=== PATIENT | male | born 1955 | race Caucasian/White ===

== ENCOUNTER 2018-10-25 09:27 | Observation (INO) ==
--- NOTE | 2018-10-11 14:29 | Anesthesiology Consultation ---
Date of Service October 11, 2018 Assessment & Plan (1) Encounter for pre-operative examination: - No previous anesthesia records available Chart Review Chart Review: Acceptable Risk for Surgery and Patient NOT seen in Pre Admission Testing Consults Requested cardiac ([facility] (08/28)) Patient was seen by cardiology on 08/28 for evaluation of abnormal stress test and upcoming surgery. Per note from that visit, "The limited uptake in the inferoapical betts is likely due to attenuation by the GI tract. Otherwise, the wall motion and EF are not consistent with scarring from prior AK. I would like to schedule and echocardiogram to get a better look at his EF and wall motion, though this should not delay any necessary surgery. He is an acceptable risk from a cardio vascular standpoint for any necessary surgery." History Surgery Operation Date: 10/25/18 07:15 Proposed Procedures p Bilateral Adenotonsillectomy, Uvulopalatopharyngoplasty - Janice Nugent MD Height/Weight Height: 6 ft 1 in Weight: 161 kg Allergies Allergy/AdvReac Type Severity Reaction Status Date / Time Penicillins Allergy Intermediate Hives Verified 09/30/18 15:47 Medications Home Medications Medication Instructions Recorded Confirmed Last Taken Cbd Oil 700 mg PO DAILY 07/10/18 09/30/18 Unknown atorvastatin 40 mg PO HS 07/10/18 09/30/18 Unknown canagliflozin-metformin [Invokamet 2 tab PO QAM 07/10/18 09/30/18 Unknown XR] hydrochlorothiazide 25 mg PO QAM 07/10/18 09/30/18 Unknown metformin 500 mg PO QAM 07/10/18 09/30/18 Unknown naproxen sodium [Aleve] 220 mg PO Q8H PRN 07/10/18 09/30/18 Unknown quinapril 80 mg PO QAM 07/10/18 09/30/18 Unknown Past Medical History Medical History Degenerative disc disease LUMBAR CHEMO NUCLEOSIS INJECTED TO DISOLVE L4-5 DISC IN PAST (NO ANESTHESIA) Diabetes mellitus, type 2 Hyperlipidemia Hypertension Morbid obesity ALAINA (obstructive sleep apnea) Osteoarthritis Past Family History Family History Mother Family history of diabetes mellitus Brother Family history of diabetes mellitus Past Surgical History Surgical History Cyst REMOVED FROM CHEST (MRSA SITE) History of arthroscopy LEFT KNEE History of colonoscopy Past Anesthesia History No Hx of Anesthesia Complications and No Family Hx of Anesthesia Complications LIKELY DIFFICULT AIRWAY BASED ON BODY HABITUS (per exam/consult from 07/10/18) Social History Smoking Status: Former smoker tobacco type: cigarettes Hx Alcohol Use: Yes Alcohol type: beer alcohol intake frequency: 3 or more drinks per day Hx Substance Use: No substance use type: does not use Testing Electrocardiogram Date: 08/28/18 Findings: + NSR @ (94) and + RBBB LAFB Echocardiogram Date: 10/08/18 EF: 55-60% Normal left and right ventricular systolic function Grade I diastolic dysfunction Moderate aortic stenosis (KINSEY 1.5 cm2) No pericardial effusion Stress Test Date: 07/31/18 Type: nuclear Myocardial perfusion imaging is done at rest and after pharmaceutical stress is abnormal. Although there is normal wall motion and EF found, there is evidence for poor uptake on both stress and resting images along the inferior wall, portions of the septum and apex of the left ventricle. These changes are not reversible.
--- NOTE | 2018-10-23 12:26 | History & Physical Report ---
Date of Service October 23, 2018 Assessment & Plan (1) Sleep apnea: adenotonsillectomy and uvulopalatoplasty History of Present Illness Chief Complaint: sleep apnea Primary Care Provider: Maverick Gaviria 63 yo with 3 episode of left tonsillar abcess, also significant moderate ALAINA Allergies Allergy/AdvReac Type Severity Reaction Status Date / Time Penicillins Allergy Intermediate Hives Verified 09/30/18 15:47 Home Medications Home Medications Medication Instructions Recorded Confirmed Type Cbd Oil 700 mg PO DAILY 07/10/18 09/30/18 History atorvastatin 40 mg PO HS 07/10/18 09/30/18 History canagliflozin-metformin [Invokamet 2 tab PO QAM 07/10/18 09/30/18 History XR] hydrochlorothiazide 25 mg PO QAM 07/10/18 09/30/18 History metformin 500 mg PO QAM 07/10/18 09/30/18 History naproxen sodium [Aleve] 220 mg PO Q8H PRN 07/10/18 09/30/18 History quinapril 80 mg PO QAM 07/10/18 09/30/18 History Past Med/Surg History Medical History Degenerative disc disease LUMBAR CHEMO NUCLEOSIS INJECTED TO DISOLVE L4-5 DISC IN PAST (NO ANESTHESIA) Diabetes mellitus, type 2 Hyperlipidemia Hypertension Morbid obesity ALAINA (obstructive sleep apnea) Osteoarthritis Surgical History Cyst REMOVED FROM CHEST (MRSA SITE) History of arthroscopy LEFT KNEE History of colonoscopy Family History Mother Family history of diabetes mellitus Brother Family history of diabetes mellitus Social History Preferred Language: [place] Communication Ability: Effective 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 Beliefs That Will Affect Care: None Current Living Situation: Spouse Other Information That Helps Us Care for You: No Feels Safe at Home: Yes Safety Concerns: Feels Safe At This Time Smoking Status: Never smoker Tobacco Type: cigarettes ; Do You Dip or Chew Tobacco: No ; Second Hand Exposure: No ; Tobacco Cessation Education Requested by Patient: No Hx Alcohol Use: Yes Alcohol type: beer Hx Substance Use: No Physical Exam Constitutional: WD/WN, vitals as above Eyes: PERRL, conjunctivae normal, anicteric sclerae ENMT: Mouth: + oropharynx abnormality (tonsils 3+ with collapse) Neck: trachea midline, no thyromegaly Respiratory: normal respiratory effort, lungs clear to auscultation Cardiovascular: RRR, no murmur, no edema
[~2018-10-25 09:27] MED LIST: CEFAZOLIN 3000MG 65 ML IV SCH; LR 15ML/HR IV SCH; [UNRECOGNIZED DRUG - REMARK] SCH
--- NOTE | 2018-10-25 10:35 | History & Physical Bridge Note ---
Date of Service October 25, 2018 History & Physical Bridge Note I have examined the patient, reviewed the History & Physical and in the interval since the performance of the History & Physical I have noted the following changes of clinical significance: no changes noted
[2018-10-25] MEDS ORDERED: ATROPINE SULFATE 0.1 MG/ML 10ML SYR IV PRN (10:49)
[2018-10-25] MEDS ORDERED: ePHEDrine sulfate 50 MG/ML AMP IV PRN (10:49)
[2018-10-25] MEDS ORDERED: ONDANSETRON INJ 2 MG/ML 2 ML VIAL IV PRN ×2 (10:49→14:00)
[2018-10-25] MEDS ORDERED: PROPOFOL IV EMULSION 10 MG/ML 20 ML VIAL IV ONE (10:53)
[2018-10-25] MEDS ORDERED: MIDAZOLAM HCL 1 MG/ML 2ML VIAL ONE (10:53)
[2018-10-25] MEDS ORDERED: ROCURONIUM BROMIDE 10 MG/ML 5 ML VIAL ONE (10:53)
[2018-10-25] MEDS ORDERED: fentaNYL citrate 100 MCG/2 ML VIAL ONE (10:53)
[2018-10-25] MEDS ORDERED: LIDOCAINE HCL 2% 2 ML VIAL/AMP(20MG/ML) INFIL ONE (10:53)
[2018-10-25] MEDS ORDERED: SUCCINYLCHOLINE CHLORIDE 20 MG/ML 10 ML VIAL ONE (10:53)
[2018-10-25] MEDS ORDERED: LIDOCAINE 2% JELLY 5 ML TUBE ONE (10:55)
[2018-10-25] MEDS ORDERED: ACETAMINOPHEN 1000 MG/100 ML IV IV ONE (10:55)
[2018-10-25] MEDS ORDERED: CEFAZOLIN 2,000 MG/15 ML IV PUSH IV ONE (10:55)
[2018-10-25] MEDS ORDERED: BUPIVACAINE/EPINEPHRINE 0.5% MPF 1:200,000 30 ML VIAL ONE (11:04)
[2018-10-25] MEDS ORDERED: MoRPHine SULFATE 4 MG/ML 1 ML CARP\\VIAL IV PRN (11:20)
[2018-10-25] MEDS ORDERED: LORazepam 1 MG/2 ML VIAL IV PRN (11:20)
[2018-10-25] MEDS ORDERED: ACETAMINOPHEN 325 MG TAB PO PRN (11:20)
[2018-10-25] MEDS ORDERED: OXYCODONE/ACETAMINOPHEN 5mg/325mg TAB PO PRN (11:20)
[2018-10-25] MEDS ORDERED: ACETAMINOPHEN SOL 650 MG/20.3 ML UDC PO PRN (11:20)
[2018-10-25] MEDS ORDERED: D5W AND 1/2NSS + 20MEQ KCL 20 MEQ/1,000 ML BAG IV SCH (11:30)
[2018-10-25] MEDS ORDERED: DEXAMETHASONE SOD INJ 4 MG/ML VIAL ONE (11:42)
[2018-10-25] MEDS ORDERED: ONDANSETRON INJ 2 MG/ML 2 ML VIAL ONE (11:42)
[2018-10-25] MEDS ORDERED: PHENYLEPHRINE 100MCG/ML 5ML SYR ONE (11:42)
--- NOTE | 2018-10-25 12:13 | Operative Report ---
Post Operative Report Pre & Post Diagnosis Operation Date: 10/25/18 11:15 Pre-Op Diagnosis: Sleep apnea Post-Op Diagnosis: Sleep apnea Procedure Operation Date: 10/25/18 11:15 Actual Procedures p Bilateral tonsillectomy, Uvulopalatopharyngoplasty - Janice Nugent MD Surgeon Janice Nugent MD Fleet Administrator none Estimated Blood Loss 25 Findings Consistent with Post-Op Diagnosis Specimens Tonsils and portion of uvula Anesthesia Type General Complications none Disposition Accompanied Patient To Recovery: Yes Disposition: Recovery Room Indications 63-year-old with sleep apnea unable to tolerate CPAP Description of Procedure He was brought to the operating room, properly identified, prepped and draped in the usual sterile manner after general endotracheal anesthesia. The mouthgag was placed in the soft palate was retracted using the red Suh catheter. Adenoidectomy was inspected and noted to have minimal adenoid tissue. Peritonsillar area were injected with 0.5% Sensorcaine with 1-200,000 strength epinephrine. Tonsillectomies were performed using the plasma knife and hemostasis was controlled using the plasma knife. The uvula was resected of its anterior portion using the #12 blade and the Metzenbaum scissors. Of the cut was cut into the palatoglossus fold and a flap was cut into the palatopharyngeus fold which was then rotated laterally into the palatoglossus incision. All the mucosal edges were approximated using 2-0 chromic sutures and the uvula was sewn upon itself. Pharynx was irrigated clean with saline. He tolerated the procedure well and was taken to the recovery area in satisfactory condition. I attest to the content of the Intraoperative Record and any orders documented therein. Any exceptions are noted below.
[2018-10-25] MEDS: fentaNYL citrate 100 MCG/2 ML VIAL IV PRN ×2 (12:45→12:50)
--- NOTE | 2018-10-25 14:45 | Anesthesiology Progress Note ---
Date of Service October 25, 2018 Anesthesia Post Procedure Vital Signs Vital Signs: Temp Pulse Pulse Pulse Pulse Resp BP 10/25/18 14:20 36.6 C 97 H 18 10/25/18 13:30 92 H 12 149/94 H 10/25/18 13:20 36.7 C 92 H 14 130/89 10/25/18 13:16 94 H 20 144/86 H 10/25/18 13:15 91 H 18 10/25/18 13:11 91 H 12 121/81 10/25/18 13:10 89 14 10/25/18 13:06 91 H 18 150/84 H 10/25/18 13:05 91 H 15 10/25/18 13:02 92 H 20 10/25/18 13:01 91 H 17 161/89 H 10/25/18 13:00 90 16 10/25/18 12:56 89 15 152/88 H 10/25/18 12:55 88 11 L 10/25/18 12:51 91 H 17 142/77 H 10/25/18 12:50 91 H 19 10/25/18 12:46 91 H 19 150/92 H 10/25/18 12:45 89 14 10/25/18 12:41 90 13 150/93 H 10/25/18 12:40 90 22 10/25/18 12:36 90 15 142/78 H 10/25/18 12:35 88 17 10/25/18 12:31 90 17 10/25/18 12:30 36.5 C 88 91 H 21 148/89 H 10/25/18 10:14 37.0 C 91 H 22 BP Pulse Ox 10/25/18 14:20 160/100 H 91 10/25/18 13:30 94 10/25/18 13:20 94 10/25/18 13:16 94 10/25/18 13:15 94 10/25/18 13:11 96 10/25/18 13:10 96 10/25/18 13:06 93 10/25/18 13:05 95 10/25/18 13:02 94 10/25/18 13:01 93 10/25/18 13:00 95 10/25/18 12:56 93 10/25/18 12:55 96 10/25/18 12:51 92 10/25/18 12:50 94 10/25/18 12:46 92 10/25/18 12:45 94 10/25/18 12:41 94 10/25/18 12:40 94 10/25/18 12:36 94 10/25/18 12:35 93 10/25/18 12:31 98 10/25/18 12:30 148/89 H 95 10/25/18 10:14 180/105 H 95 Pain Intensity Left Lower Back: Pain Intensity: 2 Throat: Pain Intensity: 4 Transfer of Care Handoff Completed per policy Notes Mental Status: alert / awake / arousable and participated in evaluation Patient Amnestic to Procedure: Yes Nausea / Vomiting: adequately controlled Pain: adequately controlled Airway Patency, RR, SpO2: stable & adequate BP & HR: stable & adequate Hydration State: stable & adequate Anesthetic Complications: no major complications apparent and Pt Satisfied with anesthetic care
[2018-10-25] MEDS: ACETAMINOPHEN/HYDROCODONE ELIX 15 ML/CUP UDP PO PRN (15:43)
[2018-10-25] MEDS: DEXAMETHASONE SOD PHOSPHATE 6 MG in SYRINGE 0 ML IV SCH ×2 (15:53→17:15)
[2018-10-25] MEDS ORDERED: SODIUM CHLORIDE 0.9% 1000ML 1,000 ML IV SCH (18:00)
[2018-10-25] MEDS ORDERED: PHARMACY GLYCEMIC MGMT CONSULT PRN (18:11)
[2018-10-25] MEDS ORDERED: INSULIN HUMAN NPH SC SCH (18:45)
[2018-10-25] MEDS: INSULIN ASPART 100 UNITS/ML 3 ML PEN SC SCH ×2 (19:51→21:00)
[2018-10-26] MEDS: INSULIN ASPART 100 UNITS/ML 3 ML PEN SC SCH ×3 (00:29→09:37)
[2018-10-26] MEDS: ACETAMINOPHEN/HYDROCODONE ELIX 15 ML/CUP UDP PO PRN (00:34)
[2018-10-26] MEDS: DEXAMETHASONE SOD PHOSPHATE 6 MG in SYRINGE 0 ML IV SCH ×2 (00:38→06:07)
[2018-10-26] MEDS ORDERED: INSULIN HUMAN NPH SC SCH (08:00)
[2018-10-26 08:01] LABS: Estimated Average Glucose 186 mg/dl; Hemoglobin A1C 8.1 % (4.5-5.6)
--- NOTE | 2018-10-26 09:32 | Discharge Summary ---
Date of Service October 26, 2018 Admission HPI Per Admitting Provider 63 yo with 3 episode of left tonsillar abcess, also significant moderate ALAINA Admission Exam (Per Admitting) Constitutional WD/WN, vitals as above Eyes PERRL, conjunctivae normal, anicteric sclerae ENMT Mouth: + oropharynx abnormality (tonsils 3+ with collapse) Neck trachea midline, no thyromegaly Respiratory normal respiratory effort, lungs clear to auscultation Cardiovascular RRR, no murmur, no edema Discharge Data Procedures Performed Operation Date: 10/25/18 11:15 Actual Procedures p Bilateral tonsillectomy, Uvulopalatopharyngoplasty - Janice Nugent MD Hospital Course (1) Sleep apnea: adenotonsillectomy and uvulopalatoplasty was performed the day of admission without complications and the patient did well postoperatively maintaining his oxygen saturation. Blood sugar and oximetry were monitored and consultation was done with pharmacy management for diabetes. Discharge Instructions Please see discharge instruction sheet. May return to work 1 week from Sunday.
--- NOTE | 2018-10-26 12:16 | Pharmacy Report ---
ED Pharmacist Progress Note - ED Pharmacist Progress Note Date of Service:: October 26, 2018 Notes:: Received call from [facility] regarding prescription that was sent for hydrocodone/acetaminophen from Dr. Nugent, just needed an indication which was for tonsillectomy. Pharmacist also reported Kate's guidelines that they could only dispense 7 day supply if is okay with this- let him know that this was from an ENT physician and not in the emergency department, offered to transfer to retarder operator to try and page Dr. Nugent. Pharmacist declined this transfer.
== END 2018-10-26 10:30 | disposition home or self-care (01) ==
LOC: 3N 09:27 → ASU 09:27